=== PATIENT | male | born 1985 | race Hispanic/Latino ===

== ENCOUNTER 2017-08-08 08:02 | Emergency (ER) | payer MEDICAID ==
[2017-08-08 08:06] VITALS: BP 101/64; PULSE 72; RESP 18; TEMP 98; O2SAT 100; BMI 22.8
--- NOTE | 2017-08-08 08:29 | ED PDOC ---
Upper Extremity Pain/Injury Time Seen by Provider: 08/08/17 08:07 Chief Complaint (Nursing): Upper Extremity Problem/Injury Chief Complaint (Provider): left shoulder pain History Per: Patient History/Exam Limitations: no limitations Onset/Duration Of Symptoms: Mins (x30 [employer]) Current Symptoms Are (Timing): Still Present Quality: "Pain" Additional Complaint(s): Scottie Myers is a 32 year old male, with a past history of previous dislocation on left shoulder, who presents to the emergency department complaining of pain and deformity to left shoulder onset x30min prior to arrival. Patient reports injury occurred while lifting weights. He denies any other injuries or medical complaints. PMD: None provided. Past Medical History Reviewed: Historical Data, Nursing Documentation, Vital Signs Vital Signs: Last Vital Signs Temp 98 F 08/08/17 08:06 Pulse 72 08/08/17 08:06 Resp 18 08/08/17 08:06 BP 101/64 08/08/17 08:06 Pulse Ox 100 08/08/17 08:06 - Medical History PMH: No Chronic Diseases - Surgical History Surgical History: No Surg Hx - Family History Family History: States: No Known Family Hx - Social History Current smoker - smoking cessation education provided: No Alcohol: None Drugs: Denies - Immunization History Hx Tetanus Toxoid Vaccination: No Hx Influenza Vaccination: No Hx Pneumococcal Vaccination: No - Home Medications Home Medications: Ambulatory Orders Medication Instructions Recorded Naproxen [Naprosyn] 500 mg PO Q12H #20 tab 08/08/17 - Allergies Allergies/Adverse Reactions: Allergies Allergy/AdvReac Type Severity Reaction Status Date / Time Penicillins Allergy ANAPHYLAXIS Verified 08/08/17 08:18 Review of Systems ROS Statement: Except As Marked, All Systems Reviewed And Found Negative Musculoskeletal: Positive for: Shoulder Pain (left, deformity) Physical Exam - Reviewed Nursing Documentation Reviewed: Yes Vital Signs Reviewed: Yes - Physical Exam Appears: Positive for: Non-toxic Head Exam: Positive for: ATRAUMATIC, NORMOCEPHALIC Skin: Positive for: Normal Color, Warm, Dry Eye Exam: Positive for: Normal appearance Neck: Positive for: Painless ROM Extremity: Positive for: Deformity (left shoulder anterior inferior, ), Other ( radial pulse 2/4. No motor/sensory deficits). Negative for: Normal ROM (unable to raise arm) Neurologic/Psych: Positive for: Alert, Oriented. Negative for: Motor/Sensory Deficits - ECG O2 Sat by Pulse Oximetry: 100 (RA) Pulse Ox Interpretation: Normal Medical Decision Making Medical Decision Making: Initial Plan: --Shoulder left [RAD] --reevaluation -Manual reduction attempted with popped felt. Radial pulse 2/4 post-reduction with no motor/sensory deficits. No sedation used. Scribe Attestation: Documented by Matthew Dutton, acting as a scribe for Crispin Begum MD Provider Scribe Attestation: All medical record entries made by the Scribe were at my direction and personally dictated by me. I have reviewed the chart and agree that the record accurately reflects my personal performance of the history, physical exam, medical decision making, and the department course for this patient. I have also personally directed, reviewed, and agree with the discharge instructions and disposition. Disposition - Clinical Impression Clinical Impression: Anterior shoulder dislocation - Patient ED Disposition Is Patient to be Admitted: No Counseled Patient/Family Regarding: Studies Performed, Diagnosis, Need For Followup, Rx Given - Disposition Referrals: Debbie Sifuentes MD [Staff Provider] - Disposition: Routine/Home Disposition Time: 08:44 Condition: FAIR Prescriptions: Naproxen [Naprosyn] 500 mg PO Q12H #20 tab Instructions: Shoulder Dislocation Forms: [facility] (Hebrew)
--- NOTE | 2017-08-08 08:48 | RAD ---
PROCEDURE: Radiographs of the Left Shoulder HISTORY: dislocation COMPARISON: No prior. FINDINGS: BONES: No acute fracture or destructive bony lesion identified. JOINTS: Normal. Glenohumeral and acromioclavicular joints preserved. No osteoarthritis. SOFT TISSUES: Normal. OTHER FINDINGS: None. IMPRESSION: Normal radiographs of the left shoulder.
== END 2017-08-08 08:45 | disposition home or self-care (01) ==
LOC: H.ER 08:02
DX: S43.005A Unspecified dislocation of left shoulder joint, initial encounter (principal); X50.9XXA Other and unspecified overexertion or strenuous movements or postures, initial encounter; Y92.89 Other specified places as the place of occurrence of the external cause